=== PATIENT | female | born 1975 | race American Indian/Alaskan Native ===

== ENCOUNTER 2016-10-19 02:29 | Emergency (ER) | payer MEDICAID, MEDICARE ==
[2016-10-19 02:29] VITALS: BMI 38.4
[2016-10-19 02:41] VITALS: TEMP 98.7; O2SAT 97
--- NOTE | 2016-10-19 03:24 | C.PDOC ---
History Of Present Illness A 41 y/o F with a Hx of multiple dislocation, c/o right shoulder pain after she was repositioning herself in bed last night. Denies weakness, numbness, or any complaints at this time. Time Seen by Provider: 10/19/16 03:13 Chief Complaint (Nursing): Back Pain History Per: Patient History/Exam Limitations: no limitations Onset/Duration Of Symptoms: Hrs Current Symptoms Are (Timing): Still Present Quality Of Discomfort: "Pain" Severity: Mild Recent travel outside of the [place]: No Additional History Per: Patient Past Medical History Reviewed: Historical Data, Nursing Documentation, Vital Signs Vital Signs: Last Vital Signs Temp 98.7 F 10/19/16 02:38 Pulse 70 10/19/16 04:11 Resp 16 10/19/16 04:11 BP 138/78 10/19/16 04:11 Pulse Ox 97 10/19/16 04:11 - Medical History PMH: Anemia, Arthritis Denies: Depression, Chronic Kidney Disease Surgical History: Cholecystectomy - [facility] Procedures CL REDUC DISLOC-SHOULDER (07/10/14) CLOSE RED-HUMERUS EPIPHY (10/08/13) CLOSED ENDOSCOPIC BIOPSY OF LARGE INTESTINE (09/21/12) ESOPHAGOGASTRODUODENOSCOPY [EGD] W/CLOSED BIOPSY (09/21/12) IMMOBILIZ/WOUND ATTN NEC (02/23/12) INJECT/INFUSE NEC (11/27/13) PACKED CELL TRANSFUSION (09/21/12) TENDON ADVANCEMENT (02/02/14) TOT OSTECT-METATARS/TARS (02/02/14) VENOUS CATHETERIZATION NEC (09/21/12) Family History: States: Unknown Family Hx - Social History Hx Tobacco Use: No Hx Alcohol Use: No Hx Substance Use: No - Immunization History Hx Tetanus Toxoid Vaccination: No Hx Influenza Vaccination: Yes Hx Pneumococcal Vaccination: No Review Of Systems Except As Marked, All Systems Reviewed And Found Negative. Musculoskeletal: Positive for: Shoulder Pain (Right shoulder pain) Neurological: Negative for: Weakness, Numbness Physical Exam - Physical Exam Appears: Non-toxic, No Acute Distress Skin: Warm, Dry Head: Atraumatic, Normacephalic Cardiovascular: Rhythm Regular Respiratory: Normal Breath Sounds, No Rales, No Rhonchi, No Wheezing Extremity: Normal ROM, Tenderness (Right shoulder tenderness) Neurological/Psych: Oriented x3, Normal Speech, Normal Cognition, Normal Motor, Normal Sensation, Other (No focal deficit) ED Course And Treatment O2 Sat by Pulse Oximetry: 97 (RA) Pulse Ox Interpretation: Normal - Other Rad XRAY right shoulder X-Ray: Viewed By Me, Read By Radiologist Interpretation: EXAM: XR Right Shoulder Complete, 2 or More Views. CLINICAL HISTORY: 41 years old, female; Pain; Shoulder; Right; Additional info: Shoulder pain. TECHNIQUE: Two or more views of the right shoulder. COMPARISON : No relevant prior studies available. 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 Hardware. appears intact without loosening, migration/fracture, or other complication. No acute. fracture/dislocation. Soft tissues: Unremarkable. IMPRESSION: No hardware failure or acute fracture/dislocation. Medical Decision Making Medical Decision Making: Impression: A 41 y/o F with a Hx of multiple dislocation, c/o right shoulder pain after she was repositioning herself in bed last night. Plans: -XRAY right shoulder -Reassess 418:[id number] neg, pt ambulatory in nad. neuro intact. advise outpt fu Disposition - Disposition Referrals: Dave Jose MD [Staff Provider] - Disposition: HOME/ ROUTINE Disposition Time: 04:00 Condition: STABLE Additional Instructions: please followup with your doctor/surgeon. return to er with worsening symptosm or concern.s Prescriptions: Naproxen [Naprosyn] 500 mg PO BID PRN #14 tablet PRN Reason: Pain, Mild (1-3) Instructions: Shoulder Sprain (ED) - Clinical Impression Clinical Impression: Shoulder sprain - Scribe Statement The provider has reviewed the documentation as recorded by the Scribmyrtle solis All medical record entries made by the Donellibmyrtle were at my direction and personally dictated by me. I have reviewed the chart and agree that the record accurately reflects my personal performance of the history, physical exam, medical decision making, and the department course for this patient. I have also personally directed, reviewed, and agree with the discharge instructions and disposition.
[2016-10-19 04:12] VITALS: BP 138/78; PULSE 70; RESP 16
--- NOTE | 2016-10-19 13:28 | RAD ---
Right shoulder three views History: Shoulder pain. Comparison: 10/19/2015 Findings: Prior right shoulder arthroplasty. Ossific fragments seen inferior to the humeral prosthetic head component. Question minimal lucency at the prosthetic glenoid interface which may represent some loosening. This may be better evaluated with MRI. Loose body and or heterotopic change at the level the coracoid process. Acromioclavicular joint space appears preserved. Question metallic radiopaque density projecting over the left esteban thorax superiorly. Clinical correlation. Impression: Prior right shoulder arthroplasty. Ossific fragments seen inferior to the humeral prosthetic head component. Question minimal lucency at the prosthetic glenoid interface which may represent some loosening. This may be better evaluated with MRI. Loose body and or heterotopic change at the level the coracoid process. Acromioclavicular joint space appears preserved. Question metallic radiopaque density projecting over the left esteban thorax superiorly. Clinical correlation.
== END 2016-10-19 04:12 | disposition home or self-care (01) ==
LOC: C.ER 02:29
DX: S43.401A Unspecified sprain of right shoulder joint, initial encounter (principal); X50.0XXA Overexertion from strenuous movement or load, initial encounter; Y93.89 Activity, other specified; Y92.003 Bedroom of unspecified non-institutional (private) residence as the place of occurrence of the external cause